=== PATIENT | female | born 1940 | race Caucasian/White ===

== ENCOUNTER → 2022-08-30 13:40 | Outpatient (REF) | payer MEDICARE, SELFPAY ==
--- NOTE | 2022-08-30 13:54 | CA_ITS ---
Transthoracic Echocardiogram Patient (Last, First, Middle): Jennifer Randle, Gender: Female Date of : 1940 Age: 82 Procedure Date: 08/30/2022 Procedure Type: Transthoracic Echocardiogram Location: OP Height: 165.1 cm Weight: 58.97 kg BSA: 1.65 m2 Heart Rate: 82 bpm BP: 130 / 90 mmHg Taxation Economist: DENY Referring MD: Nessa ROSALES Symptoms: I48.91 UNSPEC AFIB Study Quality: Good ECG Rhythm: Atrial Fibrillation Conclusions: - Normal left ventricular size and systolic function. The visually estimated ejection fraction is between 55-60%. - The left atrium is mildly dilated. The right atrium is severely dilated. - There is mild aortic valve regurgitation. - There is moderate to severe mitral valve regurgitation. - Moderately elevated right atrial pressure. Mild pulmonary hypertension is present. Findings Left Ventricle Normal left ventricular size and systolic function. The visually estimated ejection fraction is between 55-60%. There is no evidence of regional wall motion abnormalities. Diastolic function is indeterminate on the basis of available data. There is mild septal asymmetric hypertrophy. Right Ventricle Normal right ventricular cavity size. There is mildly decreased right ventricular systolic function. Atria The left atrium is mildly dilated. The right atrium is severely dilated. Aortic Valve There is a normal trileaflet aortic valve. There is mild calcification of the aortic valve. There is no aortic valve stenosis. There is mild aortic valve regurgitation. Mitral Valve The mitral valve appears normal. There is moderate to severe mitral valve regurgitation. There is no mitral valve stenosis. Pulmonic Valve The pulmonic valve is normal. There is trace pulmonic valve regurgitation. Tricuspid Valve Normal tricuspid valve structure. There is mild to moderate tricuspid valve regurgitation. Moderately elevated right atrial pressure. Mild pulmonary hypertension is present. Great Vessels All visible segments of the aorta are normal in size. The visualized portions of the pulmonary artery and branches are normal. Venous The inferior vena cava is dilated and collapses greater than 50% with inspiration. Pericardium/Pleural There is no evidence of pericardial effusion. Measurements 2D Linear Measurements IVSd: 1.17 0.6-0.9/0.6-1.0 cm LVIDd: 3.66 3.9-5.3/4.2-5.9 cm LVIDd Index: 2.22 2.4-3.2/2.2-3.1 cm/m2 LVIDs: 2.61 2.0-3.6 cm LVPWd: 0.78 0.7-1.1 cm LA Diam: 4.20 2.7-3.8/3.0-4.0 cm LAIDs Index: 2.55 1.5-2.3 cm/m2 LV Mass: 132.44 67-162/88-224 g LV Mass Index: 80.26 43-95/49-115 g/m2 LVOT Diam: 1.90 3.0+(-)1.3 cm 2D Systolic Function EF 4C: 52.90 >55% EF 2C: 60.80 >55% EF BiP: 56.00 >55% Mitral Valve MV Pk E: 0.98 MV Decel Time: 149.00 E'Lateral: 9.79 E'Medial: 8.49 E/E' Med: 11.50 E/E' Lat: 10.00 PHT: 44.00 MVA PHT: 5.00 Decel [place]: 6.54 MR Vol - PW Dopp: 7.16 MR VTI: 1.79 MR ERO: 4.00 MR Alias Michael: 0.39 MR RAD: 0.30 Aortic Valve AoV Pk Michael: 1.49 AoV Mn Michael: 1.12 AoV VTI: 0.33 AoV Pk Grad: 9.00 Aov Mn Grad: 5.00 KVNG Cont.VTI: 1.24 AI Pk Michael: 4.89 AI [place]: 2.94 LVOT LVOT Pk Michael: 0.66 LVOT Mn Michael: 0.49 LVOT VTI: 0.14 LVOT Pk Grad: 2.00 LVOT Mn Grad: 1.00 LVOT Diam: 1.90 LVOT Area: 2.84 Diastolic Function MV Pk E: 0.98 E'Medial: 8.49 E/E' Med: 11.50 E' Laterial: 9.79 E/E' Lat: 10.00 Right Ventricle TAPSE (mm): 15.50 TVS' Michael: 8.49 Tricuspid Valve TR Pk Michael: 2.78 TR Pk Grad: 31.00 RA Press: 8.00 RVSP: 39.00 Great Vessels Aorta Sinus of Valsalva: 3.00 2.0-3.5 cm Ao Asc: 3.30 2.1-3.4 cm Pulmonary Valve ME Pk Michael: 0.67 Updated in Other Vendor System with Status of Final Nikunj Hilliard MD electronically signed on 09/01/2022 9:23:20 PM with status of Final
== END ==
LOC: HO.CARD 13:40
PROVIDERS: PCP Physician Assistant Medical; Visit Provider Physician Assistant Medical
DX: I48.91 Unspecified atrial fibrillation (principal)
CPT/HCPCS: 93306

== ENCOUNTER → 2022-08-30 13:54 | Outpatient (BNV) | payer MEDICARE, SELFPAY | PROVIDERS: PCP Physician Assistant Medical; Visit Provider Internal Medicine Cardiovascular Disease | DX: I34.0 Nonrheumatic mitral (valve) insufficiency (principal) | CPT/HCPCS: 93306 ==